=== PATIENT | male | born 1960 | race Caucasian/White ===

== ENCOUNTER 2020-03-11 09:11 | Day surgery (SDC) | payer OTHER ==
[2020-03-10 13:48] VITALS: BMI 34.0
[2020-03-11] MEDS ORDERED: BSS (NA/CA/MG/K) BALANCED SALT SOLUTION OPHTH SOLN 15 ML BOTTLE ONE (09:38)
[2020-03-11] MEDS ORDERED: CARBACHOL 0.01% INTRA-OCULAR 1.5 ML VIAL ONE (09:38)
[2020-03-11] MEDS ORDERED: NEO/POLYMYX B SULF/DEXAMETH OPHTHALMIC 5ML BOTTLE ONE (09:38)
[2020-03-11] MEDS ORDERED: TETRACAINE 0.5% OPHTH SOLN 2 ML BOTTLE ONE (09:38)
[2020-03-11] MEDS ORDERED: LIDOCAINE 1% P/F 10 MG/ML VIAL ONE (09:38)
[2020-03-11] MEDS: CIPROFLOXACIN 0.3% EYE DROPS 5 ML BOTTLE ONE ×3 (10:00→10:10)
[2020-03-11] MEDS: PHENYLEPHRINE 2.5% OPHTH SOLN 15 ML BOTTLE ONE ×3 (10:00→10:10)
[2020-03-11] MEDS: TROPICAMIDE 1% OPHTH SOLN 15 ML BOTTLE ONE ×3 (10:00→10:10)
[2020-03-11] MEDS: CYCLOPENTOLATE 2% OPHTH SOLN 2 ML BOTTLE ONE ×3 (10:00→10:10)
[2020-03-11] MEDS ORDERED: MIDAZOLAM HCL 2 MG/2 ML SINGLE DOSE VIAL ONE (11:06)
[2020-03-11 11:52] VITALS: TEMP 98.7
[2020-03-11 11:53] VITALS: BP 124/81; PULSE 84
== END 2020-03-11 12:00 | disposition home or self-care (01) ==
LOC: FASU 09:11
PROVIDERS: ATTEND Ophthalmology
PROC: 08RJ3JZ Replacement of Right Lens with Synthetic Substitute, Percutaneous Approach (ICD-10-PCS; principal; 2020-03-11 11:10)
DX: H26.9 Unspecified cataract (principal)

== ENCOUNTER 2020-03-25 08:26 | Day surgery (SDC) | payer OTHER ==
[2020-03-23 12:01] VITALS: BMI 33.7
[2020-03-25] MEDS: CIPROFLOXACIN 0.3% EYE DROPS 5 ML BOTTLE ONE ×3 (08:50→09:00)
[2020-03-25] MEDS: TROPICAMIDE 1% OPHTH SOLN 15 ML BOTTLE ONE ×3 (08:50→09:00)
[2020-03-25] MEDS: CYCLOPENTOLATE 2% OPHTH SOLN 2 ML BOTTLE ONE ×3 (08:50→09:00)
[2020-03-25] MEDS: PHENYLEPHRINE 2.5% OPHTH SOLN 15 ML BOTTLE ONE ×3 (08:50→09:00)
[2020-03-25] MEDS ORDERED: MIDAZOLAM HCL 2 MG/2 ML SINGLE DOSE VIAL ONE (09:47)
[2020-03-25] MEDS ORDERED: LIDOCAINE 1% P/F 10 MG/ML VIAL ONE (09:54)
[2020-03-25] MEDS ORDERED: CARBACHOL 0.01% INTRA-OCULAR 1.5 ML VIAL ONE (09:55)
[2020-03-25] MEDS ORDERED: BSS (NA/CA/MG/K) BALANCED SALT SOLUTION OPHTH SOLN 15 ML BOTTLE ONE (09:55)
[2020-03-25] MEDS ORDERED: TETRACAINE 0.5% OPHTH SOLN 2 ML BOTTLE ONE (09:55)
[2020-03-25] MEDS ORDERED: NEO/POLYMYX B SULF/DEXAMETH OPHTHALMIC 5ML BOTTLE ONE (09:55)
[2020-03-25 10:44] VITALS: TEMP 98.3
[2020-03-25 11:06] VITALS: BP 115/75; PULSE 78
== END 2020-03-25 11:10 | disposition home or self-care (01) ==
LOC: FASU 08:26
PROVIDERS: ATTEND Ophthalmology
PROC: 08RK3JZ Replacement of Left Lens with Synthetic Substitute, Percutaneous Approach (ICD-10-PCS; principal; 2020-03-25 10:14)
DX: H26.8 Other specified cataract (principal)